=== PATIENT | female | born 1985 | race African-American/Black ===

== ENCOUNTER 2024-09-09 19:00 | Emergency (ER) | payer SELFPAY ==
[~2024-09-09] VITALS: Ht 162.6 cm; Wt 158.3 kg
[~2024-09-09 19:00] MED LIST: AZITHROMYCIN250 MG PO; CELEBREX200 MG PO; DIPHENHYDRAMINE25 M2 PO; IBUPROFEN200 MG PO
[2024-09-09 19:07] VITALS: PULSE 86; RESP 18; TEMP 98.4
[2024-09-09] MEDS ORDERED: SODIUM CHLORIDE 0.9% 100 ML ONE (20:50)
[2024-09-09] MEDS ORDERED: IOPAMIDOL 370 MG/ML 100 ML INFUS..BTL INJ ONE (20:50)
[2024-09-09] MEDS ORDERED: VENTOLIN HFA18 GM INH (22:27)
[2024-09-09 22:53] VITALS: BP 178/88; PULSE 86; RESP 18; TEMP 98; O2SAT 99
== END 2024-09-09 22:53 | disposition home or self-care (01) ==
LOC: FSED 19:10
DX: U09.9 Post COVID-19 condition, unspecified (principal); R53.82 Chronic fatigue, unspecified; E66.9 Obesity, unspecified; I10 Essential (primary) hypertension; Z11.52 Encounter for screening for COVID-19
CPT/HCPCS: 0223U; 71260; 80048; 81003; 81025; 83880; 84484; 85025; 85379; 87400; 99283; J7050; Q9967